=== PATIENT | female | born 1995 | race Caucasian/White ===

== ENCOUNTER → 2021-05-12 17:05 | Observation (INO) ==
[2021-05-12 16:32] LABS: Bacteria,Urine Few per hpf (None-Few); Bilirubin,Urine Negative (Negative); Blood,Urine Negative (Negative); Clarity,Urine Turbid (Clear); Color,Urine Yellow (Yellow); Glucose,Urine (UA) Normal (Normal); Hyaline Casts,Urine Few per lpf (None Seen); Ketones,Urine Negative (Negative); Leukocyte Esterase,Urine Negative (Negative); Mucus,Urine Few per lpf (None-Few); Nitrite,Urine Negative (Negative); PH,Urine 6.5 pH Units (5.0-8.0); Protein,Urine 30 mg/dL (Neg-Trace); Specific Gravity,Urine 1.023 (1.010-1.025); Squamous Epithelial Cell,Urine Few per hpf (None-Few); Urobilinogen,Urine Normal (Normal)
== END | disposition home or self-care (01) ==
LOC: 1NENULAB
PROVIDERS: ADMIT Student in an Organized Health Care Education/Training Program; ATTEND Student in an Organized Health Care Education/Training Program

== ENCOUNTER → 2021-06-03 20:30 | Observation (INO) ==
[~2021-06-03 20:30] MED LIST: EPHEDrine 50 MG/ML VIAL IVP PRN; Epidural Premix (fent/bupiv) 110 ML EP SCH
== END | disposition home or self-care (01) ==
LOC: 1NENULAB
PROVIDERS: ADMIT Obstetrics & Gynecology; ATTEND Obstetrics & Gynecology

== ENCOUNTER 2021-06-08 22:06 | Inpatient (IN) ==
[2021-06-08] MEDS ORDERED: Famotidine 20 MG/2 ML VIAL IVP PRN (22:46)
[2021-06-08] MEDS ORDERED: Naloxone 0.4 MG/ML INJ IVP PRN (22:46)
[2021-06-08] MEDS ORDERED: Metoclopramide 10 MG/2 ML VIAL IVP PRN (22:46)
[2021-06-08 23:43] LABS: Basophils % 0.2 %; Eosinophils # 0.1 K/mcL (0.0-0.6); Eosinophils % 0.5 %; Hematocrit 32.7 % (35.3-44.9); Hemoglobin 10.7 g/dL (11.5-15.4); Immature Granulocytes % 0.5 % (0-4); Lymphocytes % 18.4 %; Mean Corpuscular HGB Conc 32.7 g/dL (31.6-35.5); Mean Corpuscular Hemoglobin 26.1 pg (28.0-33.3); Mean Corpuscular Volume 79.8 fL (83.0-100.0); Mean Platelet Volume 10.2 fL (9.4-12.4); Monocytes # 0.9 K/mcL (0.0-1.3); Monocytes % 5.2 %; Neutrophils # 12.2 K/mcL (1.6-8.9); Platelet Count 338 K/mcL (140-400); Red Cell Distribution Width 14.6 % (11.5-14.5); Segmented Neutrophils % 75.2 %; White Blood Count 16.2 K/mcL (4.3-11.1)
[2021-06-08 23:52] LABS: Amphetamine Screen,Urine Negative ng/mL (Cutoff=1000); Barbiturate Screen,Urine Negative ng/mL (Cutoff=200); Benzodiazepines Screen,Urine Negative ng/mL (Cutoff=200); Cannabinoid Screen,Urine Negative ng/mL (Cutoff = 50); Cocaine Screen,Urine Negative ng/mL (Cutoff= 300); Opiate Screen,Urine Negative ng/mL (Cutoff=300); Phencyclidine Screen,Urine Negative ng/mL (Cutoff=25)
[2021-06-09 00:16] LABS: Influenza A PCR Negative (Negative); Influenza B PCR Negative (Negative); Resp. Syncytial Virus PCR Negative (Negative); SARS-CoV-2 by PCR (In House) Negative (Negative)
[2021-06-09] MEDS: miSOPROStoL 25 MCG TABLET PO SCH ×2 (01:00→05:12)
[2021-06-09] MEDS: Ringers Solution, Lactated 1,000 ML IVC SCH ×4 (01:01→16:23)
[2021-06-09] MEDS ORDERED: Naloxone 0.4 MG/ML INJ IVP PRN (08:12)
[2021-06-09] MEDS ORDERED: Ropivacaine/PF 0.2% 20 ML VIAL EP ONE (08:12)
[2021-06-09] MEDS ORDERED: Oxytocin 20 units/ LR 1000 mL 20 UNIT/1,000 ML BAG IVC ONE (08:12)
[2021-06-09] MEDS ORDERED: Ondansetron 4 MG/2 ML VIAL IVP PRN (08:12)
[2021-06-09] MEDS ORDERED: *HR* FentaNYL (PF) 100 MCG/2 ML VIAL EP ONE (08:12)
[2021-06-09] MEDS ORDERED: EPHEDrine 50 MG/ML VIAL IVP PRN (08:12)
[2021-06-09] MEDS ORDERED: Oxytocin 20 units/ LR 1000 mL 20 UNIT/1,000 ML BAG IVC SCH (08:15)
[2021-06-09] MEDS ORDERED: *HR* Nalbuphine 10 MG/ML AMPUL IV PRN (12:43)
[2021-06-09] MEDS: Epidural Premix (fent/bupiv) 110 ML EP SCH ×2 (16:18→23:58)
[2021-06-10] MEDS ORDERED: Ropivacaine/PF 0.2% 20 ML VIAL ONE (05:29)
[2021-06-10] MEDS: Epidural Premix (fent/bupiv) 110 ML EP SCH (07:49)
[2021-06-10] MEDS: Ringers Solution, Lactated 1,000 ML IVC SCH (07:50)
[2021-06-10] MEDS ORDERED: Chloroprocaine/PF 20 ML VIAL INFILT ONE (08:20)
[2021-06-10] MEDS ORDERED: Ondansetron 4 MG/2 ML VIAL ONE (08:21)
[2021-06-10] MEDS ORDERED: Azithromycin 500 MG in 0.9 % Sodium Chloride 250 ML IVPB ONE (08:26)
[2021-06-10] MEDS ORDERED: CEFAZOLIN IVPB ONE (08:26)
[2021-06-10] MEDS ORDERED: Azithromycin 500 MG VIAL ONE (08:26)
[2021-06-10] MEDS ORDERED: 0.9 % Sodium Chloride 250 ML ONE (08:27)
[2021-06-10] MEDS ORDERED: Clindamycin 900 MG/50 ML 900 MG/50 ML IV.SOLN IVPB ONE ×2 (08:28→08:29)
[2021-06-10] MEDS ORDERED: Acetaminophen IV 1,000 MG/100 ML BAG IVPB ONE (08:31)
[2021-06-10] MEDS ORDERED: *HR* HYDROmorphone PF 0.5 MG/0.5 ML SYRINGE IVP PRN (09:04)
[2021-06-10] MEDS ORDERED: Promethazine 6.25 MG in Water for inj. (sterile) 20 ML IVPB PRN (09:04)
[2021-06-10] MEDS ORDERED: *HR* Morphine Sulfate/PF 10 MG/10 ML AMPUL ONE (09:05)
[2021-06-10] MEDS ORDERED: Lidocaine/EPI 1:200k 2% PF 20 ML VIAL ONE (09:22)
[2021-06-10] MEDS ORDERED: Ketamine *HR* 500 MG/10 ML MDV ONE (09:29)
[2021-06-10] MEDS ORDERED: *HR* Phenylephrine 10 MG/ML VIAL ONE (09:55)
[2021-06-10] MEDS ORDERED: Ondansetron 4 MG/2 ML VIAL IVP PRN (12:29)
[2021-06-10] MEDS ORDERED: Oxytocin 20 units/ LR 1000 mL 20 UNIT/1,000 ML BAG IVC SCH (12:29)
[2021-06-10] MEDS ORDERED: *HR* OxyCODONE Immed Rel 5 MG TABLET PO PRN (12:29)
[2021-06-10] MEDS ORDERED: 0.9 % Sodium Chloride 1,000 ML IVC SCH (12:29)
[2021-06-10] MEDS ORDERED: Simethicone 80 MG TAB.CHEW PO PRN (12:29)
[2021-06-10] MEDS ORDERED: Metoclopramide 10 MG/2 ML VIAL IVP PRN (12:29)
[2021-06-10] MEDS: Acetaminophen 325 MG TABLET PO SCH ×2 (12:51→20:23)
[2021-06-10] MEDS: Ibuprofen 600 MG TABLET PO SCH ×2 (13:30→20:23)
[2021-06-11] MEDS: Acetaminophen 325 MG TABLET PO SCH ×3 (04:46→19:58)
[2021-06-11] MEDS: Ibuprofen 600 MG TABLET PO SCH ×3 (04:47→19:59)
[2021-06-11 05:50] LABS: Basophils # 0.1 K/mcL (0.0-0.2); Basophils % 0.3 %; Eosinophils % 0.2 %; Hematocrit 29.1 % (35.3-44.9); Hemoglobin 9.4 g/dL (11.5-15.4); Immature Granulocytes % 0.9 % (0-4); Lymphocytes # 2.1 K/mcL (0.6-4.6); Lymphocytes % 8.2 %; Mean Corpuscular HGB Conc 32.3 g/dL (31.6-35.5); Mean Corpuscular Volume 80.6 fL (83.0-100.0); Mean Platelet Volume 9.7 fL (9.4-12.4); Monocytes # 1.3 K/mcL (0.0-1.3); Monocytes % 4.9 %; Neutrophils # 22.1 K/mcL (1.6-8.9); Platelet Count 318 K/mcL (140-400); Red Blood Count 3.61 M/mcL (3.82-4.97); Segmented Neutrophils % 85.5 %
[2021-06-11 05:51] LABS: Eosinophils # 0.1 K/mcL (0.0-0.6); White Blood Count 25.8 K/mcL (4.3-11.1)
[2021-06-11 08:04] VITALS: O2SAT 98
[2021-06-11] MEDS ORDERED: Prenatal Vit/FA 1 EACH TABLET PO SCH (09:00)
[2021-06-12] MEDS: Ibuprofen 600 MG TABLET PO SCH (05:41)
[2021-06-12] MEDS: Acetaminophen 325 MG TABLET PO SCH (05:42)
[2021-06-12 07:50] VITALS: BP 108/60; PULSE 83; TEMP 97.9
[2021-06-12 09:58] LABS: Basophils # 0.1 K/mcL (0.0-0.2); Basophils % 0.3 %; Eosinophils # 0.1 K/mcL (0.0-0.6); Eosinophils % 0.6 %; Hematocrit 26.7 % (35.3-44.9); Hemoglobin 8.7 g/dL (11.5-15.4); Lymphocytes # 1.9 K/mcL (0.6-4.6); Mean Corpuscular HGB Conc 32.6 g/dL (31.6-35.5); Mean Corpuscular Hemoglobin 26.5 pg (28.0-33.3); Mean Corpuscular Volume 81.4 fL (83.0-100.0); Mean Platelet Volume 9.7 fL (9.4-12.4); Monocytes # 1.2 K/mcL (0.0-1.3); Monocytes % 7.1 %; Neutrophils # 13.7 K/mcL (1.6-8.9); Platelet Count 303 K/mcL (140-400); Red Blood Count 3.28 M/mcL (3.82-4.97); Red Cell Distribution Width 15.5 % (11.5-14.5); White Blood Count 17.1 K/mcL (4.3-11.1)
== END 2021-06-12 11:35 | disposition home or self-care (01) | DRG 540 ==
LOC: 1NENULAB 22:06 → 1NENUOBS 06-10 12:29
PROVIDERS: ADMIT Student in an Organized Health Care Education/Training Program; ATTEND Student in an Organized Health Care Education/Training Program

== ENCOUNTER 2021-06-19 20:43 | Observation (INO) ==
[2021-06-19 22:03] LABS: Basophils # 0.1 K/mcL (0.0-0.2); Basophils % 0.4 %; Eosinophils # 0.2 K/mcL (0.0-0.6); Eosinophils % 0.9 %; Hematocrit 33.5 % (35.3-44.9); Hemoglobin 10.6 g/dL (11.5-15.4); Immature Granulocytes % 1.4 % (0-4); Lymphocytes # 3.6 K/mcL (0.6-4.6); Lymphocytes % 22.6 %; Mean Corpuscular HGB Conc 31.6 g/dL (31.6-35.5); Mean Corpuscular Hemoglobin 25.5 pg (28.0-33.3); Mean Corpuscular Volume 80.5 fL (83.0-100.0); Mean Platelet Volume 8.4 fL (9.4-12.4); Monocytes # 0.9 K/mcL (0.0-1.3); Monocytes % 5.6 %; Platelet Count 603 K/mcL (140-400); Red Blood Count 4.16 M/mcL (3.82-4.97); Red Cell Distribution Width 14.9 % (11.5-14.5); Segmented Neutrophils % 69.1 %; White Blood Count 15.9 K/mcL (4.3-11.1)
[2021-06-19 22:20] LABS: Alanine Aminotransferase 14 Units/L (7-52); Albumin 3.7 g/dL (3.5-5.7); Albumin/Globulin Ratio 0.9 (1.1-2.2); Alkaline Phosphatase 153 Units/L (34-104); Aspartate Amino Transferase 13 Units/L (13-39); BUN/Creatinine Ratio 24 (6-26); Bilirubin,Total 0.3 mg/dL (0.3-1.0); Blood Urea Nitrogen 15 mg/dL (6-20); Carbon Dioxide 24 mEq/L (23-29); Chloride 105 mEq/L (98-107); Glucose 90 mg/dL (70-105); Osmolality,Calculated 288 (280-300); Potassium 3.6 mEq/L (3.5-5.1); Sodium 139 mEq/L (136-145); Total Protein 7.7 g/dL (6.4-8.9); eGFR For African Americans > 60 (> 60); eGFR For Non-African Americans > 60 (> 60)
[2021-06-19] MEDS ORDERED: ceFAZolin 2,000 MG in 0.9 % Sodium Chloride 100 ML IVPB ONE (22:35)
[2021-06-19] MEDS ORDERED: Isovue-370 500 ML BOTTLE IVP ONE (22:46)
[2021-06-20] MEDS ORDERED: Ibuprofen 600 MG TABLET PO PRN (01:39)
[2021-06-20] MEDS ORDERED: *HR* OxyCODONE/APAP 5/325 TABLET PO PRN (01:40)
[2021-06-20] MEDS ORDERED: Ondansetron 4 MG/2 ML VIAL IVP PRN (01:40)
[2021-06-20] MEDS: Piperacillin/Tazobactam 3.375 GM in 0.9 % Sodium Chloride Mini Bag 100 ML IVPB SCH ×2 (02:06→10:10)
[2021-06-20 08:30] VITALS: BP 137/79; PULSE 77; TEMP 97.9; O2SAT 97
[2021-06-20] MEDS: Nystatin SUSP 5 ML UD.LIQ PO SCH ×2 (10:06→16:33)
== END 2021-06-20 16:40 | disposition home or self-care (01) ==
LOC: EMEROOARM 20:43 → 1NENUOBS 20:43
PROVIDERS: ADMIT Student in an Organized Health Care Education/Training Program; ATTEND Student in an Organized Health Care Education/Training Program